=== PATIENT | male | born 1950 | race Caucasian/White ===

== ENCOUNTER 2018-03-01 22:49 | Emergency (ER) | payer OTHER, SELFPAY ==
[2018-03-01 23:00] VITALS: BP 185/91; PULSE 95; RESP 23; O2SAT 85
[2018-03-01 23:02] VITALS: BP 171/99; PULSE 96; RESP 22; TEMP 36.4; O2SAT 80; BMI 36.2
--- NOTE | 2018-03-01 23:17 | DI.RAD.S_ITS ---
PROCEDURE: XR CHEST 1V INDICATIONS: fall, trauma, preop TECHNIQUE: One view of the chest was acquired. COMPARISON: [facility], CT, CT ANGIO CHEST PE PROTOCOL, 03/02/2018, 0:11. FINDINGS: Surgical changes and devices: None. Lungs and pleura: No pleural effusions or pneumothorax. Patchy opacities in the left lung base which represent atelectasis versus pneumonia. Mediastinum: Mediastinal contours appear normal. Heart size is normal. Bones and chest wall: No suspicious bony lesions. Overlying soft tissues appear unremarkable. IMPRESSION: Left basilar atelectasis versus pneumonia. Dictated by: Zee Lares MD, PhD on 03/02/2018 at 8:51 Approved by: Zee Lares MD, PhD on 03/02/2018 at 8:52
[2018-03-01] MEDS: ALBUTEROL/IPRATROPIUM 3 ML AMPUL INH (23:26)
[2018-03-01 23:37] LABS: Add Manual Diff / Slide Review NO; Eosinophils Percent Auto 0.9 % (2-4); Hematocrit 41.5 % (41-53); Hemoglobin 14.1 g/dL (13.5-17.5); Lymphocytes Percent Auto 7.5 % (25-40); Mean Corpuscular Hemoglobin 29.1 PG (26-34); Mean Corpuscular Volume 85.7 fL (80-100); Monocytes Percent Auto 7.5 % (3-14); Neutrophils Absolute Auto 12500 /uL (3000-5900); Neutrophils Percent Auto 84.1 % (50-75); Platelet Count 185 X10^3/uL (150-400); Red Blood Cell Count 4.84 X10^6/uL (4.5-5.9); White Blood Cell Count 14.9 X10^3/uL (4.5-11.0)
[2018-03-01 23:38] VITALS: BP 147/89; PULSE 89; RESP 28; O2SAT 90
[2018-03-01 23:40] VITALS: PULSE 88; RESP 22; O2SAT 90
[2018-03-01 23:45] VITALS: BP 152/94; PULSE 86; RESP 22; O2SAT 93
[2018-03-01 23:51] LABS: Lactate (Lactic Acid) 1.8 mmol/L (0.7-2.1)
[2018-03-01 23:53] LABS: BUN Creatinine Ratio 22.2 (6-22); Blood Urea Nitrogen 40 mg/dL (9-20); Calcium 9.5 mg/dL (8.4-10.2); Carbon Dioxide 20 mmol/L (22-32); Chloride 103 mmol/L (98-107); Creatine Kinase 201 U/L (55-170); Estimated Glomerular Filt Rate 37.7 mL/min (>60); Glucose 355 mg/dL (80-110); Magnesium 1.5 mg/dL (1.6-2.3); Sodium 139 mmol/L (137-145)
[2018-03-01 23:54] LABS: HEMOLYSIS 68 (0-50)
[2018-03-01 23:56] LABS: Potassium 4.2 mmol/L (3.4-5.1)
[2018-03-02] VITALS (12 sets, daily range): BP systolic 146–171; BP diastolic 82–101; PULSE 79–86; RESP 20–28; O2SAT 92–99
--- NOTE | 2018-03-02 00:06 | DI.CT.S_ITS ---
PROCEDURE: CT ANGIO CHEST PE PROTOCOL INDICATIONS: SOB, hypoxia, travel TECHNIQUE: After the administration of intravenous contrast, 2 mm thick sections acquired from the pulmonary apices to the posterior costophrenic angles. 3-dimensional maximum intensity projection (MIP) coronal and sagittal reformats were then acquired through the thorax. For radiation dose reduction, the following was used: automated exposure control, adjustment of mA and/or kV according to patient size. COMPARISON: None. FINDINGS: Image quality: Excellent. Pulmonary arteries: Filling defects are noted in the bilateral upper lobe, bilateral lower lobe and right middle lobe segmental and subsegmental pulmonary arteries compatible with multiple pulmonary emboli. There is slight flattening of the cardiac interventricular septum suggesting right heart strain. Lungs and pleura: Patchy consolidation noted in the left lung base which could represent aspiration, pneumonia or early pulmonary infarcts. 2.1 x 1.5 cm nodular opacity noted in the right middle lobe. No pleural effusions or pneumothorax. Central and peripheral airways are patent. Mediastinum: Heart size is normal, without pericardial effusion. Atherosclerotic calcifications are noted in the aorta, great vessels and the coronary vasculature.No mediastinal or hilar adenopathy. Thoracic aorta is normal in caliber and enhancement. Esophagus is normal in caliber, without hiatal hernia. Bones and chest wall: No suspicious bony lesions. Ribs and thoracic spine appear intact throughout. No axillary or supraclavicular adenopathy. Abdomen: Small hiatal hernia. Visualized upper abdominal solid organs appear normal in the early arterial phase of enhancement. Apparent right adrenal nodule is seen to represent volume averaging artifact on the coronal images related to obliquity of the adrenal glands. IMPRESSION: 1. Abnormal study demonstrating numerous bilateral segmental and subsegmental pulmonary emboli. 2. 2.1 x 1.4 cm right middle lobe nodule. Finding may represent infectious process, round atelectasis or a neoplastic process. Recommend repeat CT scan of the chest in 3 months. 3. Patchy consolidation in the left lung base most concerning for aspiration versus pneumonia. 4. Atherosclerosis including dense atherosclerotic calcifications in the coronary vasculature. Dictated by: Zee Lares MD, PhD on 03/02/2018 at 8:10 Approved by: Zee Lares MD, PhD on 03/02/2018 at 8:18
[2018-03-02 00:08] LABS: CKMB % Relative Index 2.1 % (1.5-5.0); Creatine Kinase MB 4.21 ng/mL (<2.37)
[2018-03-02 00:09] LABS: Procalcitonin 0.06 ng/mL (<0.5)
[2018-03-02] MEDS: SODIUM CHLORIDE 0.9% 500 ML 1000 ML IV (00:30)
[2018-03-02] MEDS: HEPARIN 5,000 UNIT/ML VIAL 7100 UNIT IV (00:34)
[2018-03-02 00:43] LABS: pH ABG 7.52 (7.35-7.45)
[2018-03-02 00:44] LABS: Fractionated Inspired Oxygen 9; HCO3 ABG 21 mmol/L (23-27); Oxygen Saturation ABG 93 % (95-100); PO2 ABG 58 mmHg (80-105); TCO2 ABG 22 mmol/L (23-27)
--- NOTE | 2018-03-02 01:19 | PC.NURSE ---
Pt continues to have air hunger. On non rebreather 15 L. Desaturation w/ all exertion. at bedside.
--- NOTE | 2018-03-02 01:25 | PC.NURSE ---
Note: December 26, 2017: GFR > 60 BUN 21, CR 1.1
[2018-03-02 01:33] LABS: WBC Urine 1-5/HPF (0-5/HPF)
[2018-03-02 01:34] LABS: Bacteria Urine Occasional (0-1); RBC Urine 0-1/HPF (0-5/HPF)
[2018-03-02 01:35] LABS: Culture Indicated Urine Cult Not Indicated; Hyaline Casts Urine 0-1/LPF
[2018-03-02] MEDS: HEPARIN DRIP 25,000 UNIT/500 ML IV.SOLN 42.456 UNIT IV (02:05)
--- NOTE | 2018-03-02 02:08 | PC.NURSE ---
Pt up to commode at bedside. RR increased to > 40, oxygen sat maintained > 90%. HR 90s. No BM, returned to bed, encouraged to take deep breath. Recovered to RR 25-29 in @ 5 min. Weather checking [employer].
[2018-03-02] MEDS: PANTOPRAZOLE 40 MG VIAL IV (02:40)
--- NOTE | 2018-03-02 02:50 | ED_ITS ---
HPI - URI/Sore Throat General Chief Complaint: Upper Respiratory Symptoms Stated Complaint: SOB HAS A COLD Time Seen by Provider: 03/01/18 23:00 Source: patient and family Mode of arrival: ambulatory Limitations: no limitations History of Present Illness HPI Narrative: 67-year-old male with history of hypertension, hyperlipidemia, and diabetes presents to the emergency department with his and a chief complaint of shortness of breath over the past few days. [place] has been on [place] off the [facility] and just returned about 3 hr ago. He states he is profoundly short of breath particularly with any exertion but denies cough or chest pain. He has had no fever or shaking chills. He denies any history of cardiac disease, clots, recent injury or surgery or other known risk factor for PE. Onset (ago): day(s) Duration: constant Severity: severe Relieving factors: nothing Exacerbating factors: exertion Context: recent travel Associated symptoms: other (dyspnea) Treatments prior to arrival: none Related Data Home Medications Medication Instructions Recorded Confirmed aspirin [Aspir-81] 81 mg PO DAILY 03/02/18 03/02/18 atorvastatin 10 mg PO DAILY 03/02/18 03/02/18 carvedilol 25 mg PO BID 03/02/18 03/02/18 gabapentin 600 mg PO BEDTIME 03/02/18 03/02/18 losartan 100 mg PO DAILY 03/02/18 03/02/18 metformin 1,000 mg PO BID 03/02/18 03/02/18 tamsulosin 0.8 mg PO DAILY 03/02/18 03/02/18 Allergies Allergy/AdvReac Type Severity Reaction Status Date / Time No Known Drug Allergies Allergy Verified 03/01/18 23:02 Review of Systems Review of Systems All systems reviewed & are unremarkable except as noted in HPI and below Constitutional Denies chills, Denies fever(s), Denies lethargy and Denies weakness Eyes Denies change in vision, Denies eye discharge, Denies irritation and Denies loss of vision ENT Ears, Nose, Mouth, and Throat: Denies change in voice, Denies neck pain and Denies sore throat Cardiovascular Denies chest pain, Denies irregular heart rhythm, Denies lightheadedness, Denies palpitations, Reports dyspnea, Denies dyspnea on exertion and Denies orthopnea Respiratory Denies cough, Reports dyspnea, Denies dyspnea on exertion and Denies wheezing Gastrointestinal Gastrointestinal: Denies abdominal pain, Denies change in bowel habits, Denies diarrhea, Denies nausea and Denies vomiting Genitourinary Denies hematuria, Denies flank pain, Denies urinary incontinence and Denies urinary urgency Musculoskeletal Denies neck pain Integumentary/Breasts Denies pruritus, Denies erythema, Denies rash and Denies wounds Neurologic Denies confusion, Denies loss of vision and Denies weakness Psychiatric Denies anxiety, Denies confusion, Denies depression, Denies homicidal ideation and Denies suicidal ideation Endocrine Denies palpitations Hematologic/Lymphatic Denies easy bruising Allergic/Immunologic Denies wheezing [facility] Medical History Diabetes (Acute) Diabetic neuropathy (Acute) High blood pressure (Acute) High cholesterol (Acute) Surgical History History of rotator cuff surgery (Acute ~2014) Social History Smoking Status: Never smoker Exam Narrative Exam Narrative: Pleasant 67-year-old male in significant distress, pulse ox on arrival any upper 70s to low 80s at room air Initial Vital Signs Initial Vital Signs: Vital Signs Pulse Rate 95 H 03/01/18 23:00 Respiratory Rate 23 03/01/18 23:00 Blood Pressure 185/91 H 03/01/18 23:00 Pulse Oximetry 85 L 03/01/18 23:00 HENDC Head: normal to inspection Ears: hearing grossly normal bilaterally Nose: external nose normal Face and sinus: normal facial exam Mouth: oral mucosae normal Teeth and gingiva: dentition normal Eyes General: appearance normal, both eyes and all related structures Eyelids: eyelids normal Conjunctivae: conjunctivae normal Sclera: sclerae normal Pupils: PERRL EOM: EOM intact bilaterally Neck Neck: normal visual inspection, trachea midline, No lymphadenopathy, No midline deformity and No JVD Lymphatic: No lymphedema Chest Chest: normal inspection of the chest Resp Effort & Inspection: abnormal respiratory pattern and respiratory distress Auscultation: rales (left base) Cardio Rate: regular rate Rhythm: regular rhythm Heart Sounds: no click, no gallops, no murmurs and no rubs Pulses: normal peripheral pulses GI Inspection: non-distended Palpation: soft, no hepatosplenomegaly, No guarding, No pulsatile mass and No tender Auscultation: normal bowel sounds Back/Spine/Pelvis Back: No CVA tenderness Cervical Spine: cervical ROM normal and No pain with cervical ROM Thoracic/Lumbar Spine: thoracic and lumbar spine normal to inspection Skin General: no rashes or lesions noted, No jaundice and No petechiae Neuro General: alert, oriented x3, gait normal and no focal motor deficits Speech: speech normal Extrem General: full ROM, no clubbing, cyanosis or edema, no pedal edema and no calf tenderness Other: No lower extremity swelling, erythema, pain or other signs suggestive of DVT Course Orders Ordered: ED Orders 03/01/18 22:23 Blood Culture Stat 03/01/18 23:16 Consult to Respiratory Therapy Evaluate & Treat EKG-12 Lead Stat 03/01/18 23:17 XR chest 1V Stat 03/01/18 23:25 B Type Natriuretic Peptide Stat Basic Metabolic Panel Stat Complete Blood Count AUTO DIFF Stat Lactate (Lactic Acid) Stat Magnesium Stat Procalcitonin Stat Troponin with CK Cardiac Panel Stat 03/02/18 EKG-12 Lead Routine 03/02/18 00:06 CT angio chest PE protocol Stat 03/02/18 00:24 Arterial Blood Gas Stat 03/02/18 01:15 Urine Microscopic Stat Discontinued Medications Albuterol (Proventil) 1.25 mg INH NOW ONE Stop: 03/01/18 23:25 Last Admin: 03/01/18 23:27 Dose: Albuterol/Ipratropium (Duoneb) 3 ml INH NOW ONE Stop: 03/01/18 23:17 Last Admin: 03/01/18 23:26 Dose: 3 ml Heparin Sodium (Porcine) (Heparin) 7,100 unit 60 unit/kg (7100 unit) IV NOW ONE Stop: 03/02/18 00:30 Last Admin: 03/02/18 00:34 Dose: 7,100 unit Sodium Chloride (Normal Saline 0.9%) 500 mls @ 1,000 mls/hr IV BOLUS ONE Stop: 03/02/18 01:26 Last Infusion: 03/02/18 01:35 Dose: 0 mls/hr Admin: 03/02/18 00:30 Dose: 1,000 mls/hr Heparin Sodium/Dextrose (Heparin Drip) 25,000 unit in 500 mls @ 42.456 mls/hr IV CONT ALETHEA; Protocol Last Admin: 03/02/18 02:05 Dose: 18 units/kg/hr, 42.456 mls/hr Pantoprazole Sodium (Protonix) 40 mg IV NOW ONE Stop: 03/02/18 02:40 Last Admin: 03/02/18 02:40 Dose: 40 mg Reevaluation(s) Reevaluation #1: Patient seems to be much more comfortable when switching from a nasal cannula to a non-rebreather. He continues to rest comfortably and is mentating without difficulty. Sats were in low to mid 90s on non-rebreather Reevaluation #2: Patient continues to rest relatively comfortably Consultations Consultation #1: Immediately upon echo was a red of [facility] was contacted but they have no ICU beds. At that point we called [facility] Consultation #2: Dr. Ashley at [facility] ICU is happy to accept patient. Unclear at this point if patient will meet criteria for catheter directed lysis. [facility] contacted due to possibility of rapid decompensation and length of travel Vital Signs - 8 hr 03/01/18 23:00 03/01/18 23:02 03/01/18 23:38 Temperature 97.5 F L Pulse Rate 95 H 96 H 89 Respiratory Rate 23 22 28 H Blood Pressure 171/99 H Blood Pressure [Left Arm] 185/91 H 147/89 H Pulse Oximetry 85 L 80 L 90 L 03/01/18 23:45 03/02/18 00:00 03/02/18 00:15 Temperature Pulse Rate 86 86 86 Respiratory Rate 22 22 24 Blood Pressure Blood Pressure [Left Arm] 152/94 H 152/94 H 164/82 H Pulse Oximetry 93 93 93 03/02/18 00:28 03/02/18 01:00 03/02/18 01:15 Temperature Pulse Rate 85 84 81 Respiratory Rate 22 24 22 Blood Pressure Blood Pressure [Left Arm] 164/82 H 171/101 H 164/100 H Pulse Oximetry 92 95 99 03/02/18 01:30 03/02/18 01:48 03/02/18 02:08 Temperature Pulse Rate 81 80 82 Respiratory Rate 22 20 28 H Blood Pressure Blood Pressure [Left Arm] 150/90 H 156/91 H 168/100 H Pulse Oximetry 98 99 95 03/02/18 02:41 03/02/18 02:58 03/02/18 03:15 Temperature Pulse Rate 81 79 80 Respiratory Rate 24 24 24 Blood Pressure Blood Pressure [Left Arm] 156/91 H 147/96 H 165/86 H Pulse Oximetry 96 96 96 03/02/18 03:20 Temperature Pulse Rate 80 Respiratory Rate 24 Blood Pressure 146/95 H Blood Pressure [Left Arm] Pulse Oximetry 97 MDM - URI/Sore Throat Differential Diagnosis Differential diagnosis: Likely upper respiratory infection, viral infection, bronchitis, influenza, pharyngitis and other Medical Records Attestation: I reviewed the patient's medical records. Lab Data Attestation: I reviewed the patient's lab results. Result diagrams: 03/01/18 23:25 03/01/18 23:25 Lab Results 03/01/18 03/01/18 03/01/18 Range/Units 23:25 23:25 23:25 WBC 14.9 H (4.5-11.0) X10^3/uL RBC 4.84 (4.5-5.9) X10^6/uL Hgb 14.1 (13.5-17.5) g/dL Hct 41.5 (41-53) % MCV 85.7 (80-100) fL MCH 29.1 (26-34) PG MCHC 34.0 (30-36) % RDW 15.0 H (11.6-14.8) % Plt Count 185 (150-400) X10^3/uL Neut % (Auto) 84.1 H (50-75) % Lymph % (Auto) 7.5 L (25-40) % Stoddard % (Auto) 7.5 (3-14) % Eos % (Auto) 0.9 L (2-4) % Baso % (Auto) 0.0 (0-2) % Neut # (Auto) 27362 H (9992-9165) /uL ABG pH (7.35-7.45) ABG pCO2 (35-45) mmHg ABG pO2 (80-105) mmHg ABG HCO3 (23-27) mmol/L ABG Total CO2 (23-27) mmol/L ABG O2 Saturation (95-100) % ABG Base Excess (-2-3) mmol/L FiO2 Sodium 139 (137-145) mmol/L Potassium 4.2 (3.4-5.1) mmol/L Chloride 103 (98-107) mmol/L Carbon Dioxide 20 L (22-32) mmol/L BUN 40 H (9-20) mg/dL Creatinine 1.80 H (0.66-1.25) mg/dL Estimated GFR 37.7 L (>60) mL/min BUN/Creatinine Ratio 22.2 H (6-22) Glucose 355 H (80-110) mg/dL Lactate (0.7-2.1) mmol/L Calcium 9.5 (8.4-10.2) mg/dL Magnesium 1.5 L (1.6-2.3) mg/dL Total Creatine Kinase 201 H (55-170) U/L CK-MB (CK-2) 4.21 H (<2.37) ng/mL CK-MB (CK-2) Rel Index 2.1 (1.5-5.0) % Troponin I 2.340 H* (0.01-0.034) ng/mL B-Natriuretic Peptide 196.0 H (<100) Procalcitonin 0.06 (<0.5) ng/mL Urine RBC (0-5/HPF) Urine WBC (0-5/HPF) Urine Bacteria (None) Hyaline Casts (None) Ur Culture Indicated? Micro UA Comment 03/01/18 03/02/18 03/02/18 Range/Units 23:25 00:24 01:15 WBC (4.5-11.0) X10^3/uL RBC (4.5-5.9) X10^6/uL Hgb (13.5-17.5) g/dL Hct (41-53) % MCV (80-100) fL MCH (26-34) PG MCHC (30-36) % RDW (11.6-14.8) % Plt Count (150-400) X10^3/uL Neut % (Auto) (50-75) % Lymph % (Auto) (25-40) % Stoddard % (Auto) (3-14) % Eos % (Auto) (2-4) % Baso % (Auto) (0-2) % Neut # (Auto) (8062-5178) /uL ABG pH 7.52 H (7.35-7.45) ABG pCO2 26.0 L (35-45) mmHg ABG pO2 58 L (80-105) mmHg ABG HCO3 21 L (23-27) mmol/L ABG Total CO2 22 L (23-27) mmol/L ABG O2 Saturation 93 L (95-100) % ABG Base Excess -2.0 (-2-3) mmol/L FiO2 9 Sodium (137-145) mmol/L Potassium (3.4-5.1) mmol/L Chloride (98-107) mmol/L Carbon Dioxide (22-32) mmol/L BUN (9-20) mg/dL Creatinine (0.66-1.25) mg/dL Estimated GFR (>60) mL/min BUN/Creatinine Ratio (6-22) Glucose (80-110) mg/dL Lactate 1.8 (0.7-2.1) mmol/L Calcium (8.4-10.2) mg/dL Magnesium (1.6-2.3) mg/dL Total Creatine Kinase (55-170) U/L CK-MB (CK-2) (<2.37) ng/mL CK-MB (CK-2) Rel Index (1.5-5.0) % Troponin I (0.01-0.034) ng/mL B-Natriuretic Peptide (<100) Procalcitonin (<0.5) ng/mL Urine RBC 0-1/hpf (0-5/HPF) Urine WBC 1-5/hpf (0-5/HPF) Urine Bacteria Occasional (0-1) (None) Hyaline Casts 0-1/lpf (None) Ur Culture Indicated? Cult not indicated Micro UA Comment Not Reportable Imaging Data CT scan - chest: Attestation: I personally reviewed and interpreted this imaging study as follows: My impression: Bilateral PEs Radiologist's impression: Positive for multiple pulmonary emboli and segmental and subsegmental pulmonary arteries throughout all lobes of the right lung in all lobes of the left lung. Pulmonary emboli extend into distal main pulmonary arteries. Two moderate focal size densities in left lower lobe could be pneumonia versus pulmonary infarct ECG Data Attestation: I personally reviewed and interpreted this ECG as follows: Prior ECG tracings: not available for review Interpretation: Normal sinus rhythm without signs of ischemia or ectopy Critical Care Time Critical Care Time: Yes Total Critical Care Time: 45 Attestation: The high probability of a clinically significant, sudden or life threatening deterioration of the [] system(s) required my full and direct attention, intervention and personal management. The aggregate critical care time was [] minutes. This time is in addition to time spent performing reported procedures but includes the following: [] Data Review and interpretation [] Patient assessment and monitoring of vital signs [] Documentation [] Medication orders and management Discharge Plan Departure Patient Disposition: [facility] Clinical Impression: Bilateral pulmonary embolism, Acute respiratory failure with hypoxia, Elevated troponin, Elevated brain natriuretic peptide (BNP) level, Embolism, pulmonary with infarction Discharge Date/Time: 03/02/18 03:48 Interventions: ED Discharge Assessment Last Done: 03/02/18 03:20 Prescriptions: No Action gabapentin 600 mg tablet 600 mg PO BEDTIME RF: 0 atorvastatin 10 mg Tablet 10 mg PO DAILY RF: 0 aspirin [Aspir-81] 81 mg Tablet,Delayed Release (Dr/Ec) 81 mg PO DAILY RF: 0 tamsulosin 0.4 mg capsule,extended release 24hr 0.8 mg PO DAILY RF: 0 carvedilol 25 mg tablet 25 mg PO BID RF: 0 metformin 1,000 mg tablet 1,000 mg PO BID RF: 0 losartan 100 mg tablet 100 mg PO DAILY RF: 0
== END 2018-03-02 03:48 | disposition short-term general hospital (02) ==
PROVIDERS: Emergency Provider Emergency Medicine; PCP Internal Medicine
DX: I26.99 Other pulmonary embolism without acute cor pulmonale (principal); J96.01 Acute respiratory failure with hypoxia; R74.8 Abnormal levels of other serum enzymes; R79.89 Other specified abnormal findings of blood chemistry
CPT/HCPCS: 36415; 36591; 36600; 71045; 71275; 80048; 81003; 81015; 82550; 82553; 82805; 83605; 83735; 83880; 84145; 84484; 85025; 87040; 93005; 94640; 99285; 99291; C9113; J1644; Q9967

== ENCOUNTER → 2018-03-20 11:17 | Outpatient (CLI) | payer OTHER, SELFPAY ==
--- NOTE | 2018-03-20 | DI.US.S_ITS ---
PROCEDURE: US PERIPH VENOUS LOW EXTREM LT INDICATIONS: LEFT LOWER LEG PAIN TECHNIQUE: Real-time imaging, as well as color and pulse Doppler interrogation, were performed of the lower extremity deep veins from the inguinal ligament to the popliteal fossa. COMPARISON: [facility], CT, CT ANGIO CHEST PE PROTOCOL, 03/02/2018, 0:11. FINDINGS: There are intraluminal filling defects in the popliteal vein which is noncompressible, consistent with DVT. IMPRESSION: DVT involving the left popliteal vein. Dictated by: Dre Portillo M.D. on 03/20/2018 at 14:52 Approved by: Dre Portillo M.D. on 03/20/2018 at 14:56
== END ==
PROVIDERS: PCP Internal Medicine; Visit Provider Student in an Organized Health Care Education/Training Program
DX: I82.432 Acute embolism and thrombosis of left popliteal vein (principal); M79.662 Pain in left lower leg
CPT/HCPCS: 93971

== ENCOUNTER 2018-06-29 20:14 | Emergency (ER) | payer OTHER, SELFPAY ==
[2018-06-29 20:28] VITALS: BP 168/96; PULSE 76; RESP 20; TEMP 36.8; O2SAT 96
[2018-06-29 20:51] LABS: Bacteria Urine None Seen
[2018-06-29 21:10] LABS: Culture Indicated Urine Cult Not Indicated; RBC Urine 1-5/HPF (0-5/HPF); Squamous Epithelial Cell Urine 0-1 /HPF; WBC Urine 0-1/HPF (0-5/HPF)
--- NOTE | 2018-06-29 21:25 | PC.NURSE ---
pt states low abdominal pain and low back pain since saturday. Tried to self cath himself without success. Has enlarged prostate. Bladder scanner post void was greater 999 mL. Placed Morris catheter per doctor's order.
[2018-06-29 22:23] VITALS: BP 139/83; PULSE 74; RESP 16; O2SAT 95
--- NOTE | 2018-06-29 22:29 | ED.MALEGU ---
HPI - Male Genitourinary General Chief complaint: Urogenital-Male Stated complaint: pain lower abdomen and kidneys, nausea Time Seen by Provider: 06/29/18 21:00 Source: patient and family Mode of arrival: ambulatory Limitations: no limitations History of Present Illness HPI Narrative: 68-year-old former smoker presents with his in the chief complaint of difficulty urinating and lower abdominal discomfort. The patient has known enlarged prostate and has been told by his urologist that he may likely need a ?roto router ?. He denies fever or chills nor nausea or vomiting. His pain is worse when he moves and improves with rest. He admits to pain that radiates into his bilateral flank ?were his kidneys are ?. He had been given supplies to self cath if this event happens and gave it an attempt yesterday but was unsuccessful Onset (ago): hour(s) Duration: constant Location: right flank, left flank and abdomen Severity: severe Quality: aching Relieving factors: none Exacerbating factors: movement Reports urinary retention Related Data Home Medications Medication Instructions Recorded Confirmed aspirin [Aspir-81] 81 mg PO DAILY 03/02/18 03/02/18 atorvastatin 10 mg PO DAILY 03/02/18 03/02/18 carvedilol 25 mg PO BID 03/02/18 03/02/18 gabapentin 600 mg PO BEDTIME 03/02/18 03/02/18 losartan 100 mg PO DAILY 03/02/18 03/02/18 metformin 1,000 mg PO BID 03/02/18 03/02/18 tamsulosin 0.8 mg PO DAILY 03/02/18 03/02/18 Allergies Allergy/AdvReac Type Severity Reaction Status Date / Time No Known Drug Allergies Allergy Verified 06/29/18 20:36 Review of Systems Review of Systems All systems reviewed & are unremarkable except as noted in HPI and below Constitutional Denies chills, Denies fever(s), Denies lethargy and Denies weakness Eyes Denies change in vision, Denies eye discharge, Denies irritation and Denies loss of vision ENT Ears, Nose, Mouth, and Throat: Denies change in voice, Denies neck pain and Denies sore throat Cardiovascular Denies chest pain, Denies irregular heart rhythm, Denies lightheadedness, Denies palpitations, Denies dyspnea, Denies dyspnea on exertion and Denies orthopnea Respiratory Denies cough, Denies dyspnea, Denies dyspnea on exertion and Denies wheezing Gastrointestinal Gastrointestinal: Reports abdominal pain, Denies change in bowel habits, Denies diarrhea, Denies nausea and Denies vomiting Genitourinary Denies hematuria, Reports difficulty urinating, Denies flank pain, Denies urinary incontinence and Denies urinary urgency Musculoskeletal Denies neck pain Integumentary/Breasts Denies pruritus, Denies erythema, Denies rash and Denies wounds Neurologic Denies confusion, Denies loss of vision and Denies weakness Psychiatric Denies anxiety, Denies confusion, Denies depression, Denies homicidal ideation and Denies suicidal ideation Endocrine Denies palpitations Hematologic/Lymphatic Denies easy bruising Allergic/Immunologic Denies wheezing [facility] Medical History Diabetes (Acute) Diabetic neuropathy (Acute) High blood pressure (Acute) High cholesterol (Acute) Surgical History History of rotator cuff surgery (Acute ~2014) Social History Smoking Status: Never smoker Exam Narrative Exam Narrative: GENERAL: Pleasant 68-year-old male, but obviously very uncomfortable. HEAD: Atraumatic. Normocephalic. No temporal or scalp tenderness. EYES: Pupils equal round and reactive. Extraocular motions intact. No scleral icterus. No injection or drainage. ENT: Nose without bleeding, purulent drainage or septal hematoma. Throat without erythema, tonsillar hypertrophy or exudate. Uvula midline. Airway patent. NECK: Trachea midline. No JVD or lymphadenopathy. Supple, nontender, no meningeal signs. CARDIOVASCULAR: Regular rate and rhythm without murmurs, gallops, or rubs. RESPIRATORY: Clear to auscultation. Breath sounds equal bilaterally. No wheezes, rales, or rhonchi. GASTROINTESTINAL: Abdomen soft, tender in the suprapubic region, nondistended. No hepato-splenomegaly, or palpable masses. No guarding. EXTREMITIES: No clubbing, cyanosis, or edema. No joint tenderness, effusion, or edema noted. BACK: Nontender without deformity or crepitance. No flank tenderness. NEURO: AOx3. SKIN: No rash or erythema. Initial Vital Signs Initial Vital Signs: Vital Signs Temperature 98.2 F 06/29/18 20:28 Pulse Rate 76 06/29/18 20:28 Respiratory Rate 20 06/29/18 20:28 Blood Pressure 168/96 H 06/29/18 20:28 Pulse Oximetry 96 06/29/18 20:28 Course Orders Ordered: ED Orders 06/29/18 20:40 Urine Microscopic Stat Reevaluation(s) Reevaluation #1: Bladder scanner notes greater than 999 mL. Morris catheter placed and 1800mLremoved with complete resolution of symptoms Vital Signs - 8 hr 06/29/18 20:28 06/29/18 22:23 Temperature 98.2 F Pulse Rate 76 74 Respiratory Rate 20 16 Blood Pressure 168/96 H Blood Pressure [Left Arm] 139/83 Pulse Oximetry 96 95 MDM - Male Genitourinary Lab Data Lab Results 06/29/18 Range/Units 20:40 Urine RBC 1-5/hpf (0-5/HPF) Urine WBC 0-1/hpf (0-5/HPF) Ur Squamous Epith Cells 0-1 /hpf Urine Bacteria None seen (None) Ur Culture Indicated? Cult not indicated Micro UA Comment Not Reportable Urine Dip Bedside Urine Glucose Negative Bedside Urine Bilirubin - Negative Bedside Urine Ketone - Negative Urine Specific [place] 1.015 Bedside Urine Occult Blood +++ Bedside Urine pH 6.0 Bedside Urine Protein + 30 Bedside Urine Urobilinogen - Negative Bedside Urine Nitrite - Negative Bedside Urine Leukocytes - Negative Esterase Discharge Plan Departure Patient Disposition: Home Clinical Impression: Acute urinary retention Discharge Date/Time: 06/29/18 22:41 Interventions: ED Discharge Assessment Last Done: 06/29/18 22:40 Instructions: DI for Urinary Retention in Men Activity Restrictions/Additional Instructions: *You have been diagnosed with [ acute urinary retention ] *What to do: * continue to take medications as directed *Follow up with your urologist, call tomorrow for an appointment. Let them know you were seen in the Emergency Department and that we ask that you be seen in follow up *Return to ER if you should have any new, worsening or concerning symptoms Prescriptions: No Action gabapentin 600 mg tablet 600 mg PO BEDTIME RF: 0 atorvastatin 10 mg Tablet 10 mg PO DAILY RF: 0 aspirin [Aspir-81] 81 mg Tablet,Delayed Release (Dr/Ec) 81 mg PO DAILY RF: 0 tamsulosin 0.4 mg capsule,extended release 24hr 0.8 mg PO DAILY RF: 0 carvedilol 25 mg tablet 25 mg PO BID RF: 0 metformin 1,000 mg tablet 1,000 mg PO BID RF: 0 losartan 100 mg tablet 100 mg PO DAILY RF: 0 Referrals: Rebecca Hardwick MD [Physician] -
== END 2018-06-29 22:41 | disposition home or self-care (01) ==
PROVIDERS: Emergency Provider Emergency Medicine; PCP Internal Medicine
DX: R33.9 Retention of urine, unspecified (principal)
CPT/HCPCS: 51701; 51798; 81003; 81015; 99283

== ENCOUNTER 2018-07-16 20:32 | Emergency (ER) | payer OTHER, SELFPAY ==
[2018-07-16 20:35] VITALS: BP 203/117; PULSE 89; RESP 22; TEMP 36.4; O2SAT 98
--- NOTE | 2018-07-16 20:50 | ED_ITS ---
HPI - Male Genitourinary General Chief complaint: Urogenital-Male Stated complaint: BLEEDING AND PAIN FROM CATHETER Time Seen by Provider: 07/16/18 20:49 Source: patient Mode of arrival: ambulatory Limitations: no limitations History of Present Illness HPI Narrative: Patient is a 68-year-old male with a known large prostate here for not being able to urinate since this morning. Patient has seen Urology for the enlarged prostate this was after he had an episode of urinary retention. He is on prostate medications. He does self cath at home. He is also on Coumadin for DVT and PEs. He states that throughout today he has been self cathing however has only been getting trickles of blood and no urine. No fevers. Does have lower abdominal pain and distention. Related Data Home Medications Medication Instructions Recorded Confirmed aspirin [Aspir-81] 81 mg PO DAILY 03/02/18 03/02/18 atorvastatin 10 mg PO DAILY 03/02/18 03/02/18 carvedilol 25 mg PO BID 03/02/18 03/02/18 gabapentin 600 mg PO BEDTIME 03/02/18 03/02/18 losartan 100 mg PO DAILY 03/02/18 03/02/18 metformin 1,000 mg PO BID 03/02/18 03/02/18 tamsulosin 0.8 mg PO DAILY 03/02/18 03/02/18 Allergies Allergy/AdvReac Type Severity Reaction Status Date / Time No Known Drug Allergies Allergy Verified 06/29/18 20:36 Review of Systems Constitutional Denies fever(s) Cardiovascular Denies chest pain and Denies dyspnea Respiratory Denies dyspnea Gastrointestinal Gastrointestinal: Reports abdominal pain, Reports nausea and Denies vomiting Genitourinary Reports hematuria, Reports difficulty urinating and Reports urinary hesitancy Musculoskeletal Denies myalgias and Denies arthralgias Integumentary/Breasts Denies lesions and Denies rash Hematologic/Lymphatic Reports easy bleeding [facility] Medical History Diabetes (Acute) Diabetic neuropathy (Acute) High blood pressure (Acute) High cholesterol (Acute) Surgical History History of rotator cuff surgery (Acute ~2014) Social History Smoking Status: Never smoker Exam Initial Vital Signs Initial Vital Signs: Vital Signs Temperature 97.6 F 07/16/18 20:35 Pulse Rate 89 07/16/18 20:35 Respiratory Rate 22 07/16/18 20:35 Blood Pressure 203/117 H 07/16/18 20:35 Pulse Oximetry 98 07/16/18 20:35 Const General: cooperative, No comfortable (Uncomfortable appearing), well developed and well groomed Orientation: alert, awake and oriented x3 Resp Effort & Inspection: normal respiratory effort Cardio Rate: regular rate GI Inspection: distended (Lower abdomen) Palpation: tender (Lower abdomen) Back/Spine/Pelvis Back: No CVA tenderness Skin Lesions: no lesions Rashes: no rashes Neuro General: alert, awake and oriented x3 Extrem General: normal to inspection and capillary refill normal Psych Appearance: grossly normal and well kempt Course Orders Ordered: Discontinued Medications Morphine Sulfate (Morphine) 4 mg SUBCUT NOW ONE Stop: 07/16/18 21:34 Last Admin: 07/16/18 21:41 Dose: 4 mg Morphine Sulfate (Morphine) 4 mg SUBCUT NOW ONE Stop: 07/16/18 22:55 Last Admin: 07/16/18 22:56 Dose: 4 mg Vital Signs - 8 hr 07/16/18 20:35 07/16/18 22:35 Temperature 97.6 F Pulse Rate 89 80 Respiratory Rate 22 18 Blood Pressure 203/117 H Blood Pressure [Right Arm] 210/110 H Pulse Oximetry 98 97 MDM - Male Genitourinary MDM Narrative Medical decision making narrative: Patient did not arrive with a catheter in place. Had 2 initial attempts at placing a Morris catheter unsuccessful with urine her return. I discussed the case with Dr. Alejandro who is the patient's urologist who recommended using a coude catheter which we did here in the ER. We were still unable to have any return of urine. I do have concern of either a blockage with a clot or a false passage. Dr. Alejandro recommend that the patient be transferred to [facility] where he would see the patient. I discussed the case with the emergency department at [facility] and Dr. Velazquez accepts patient in transfer. Patient is stable for transport. That he would prefer to go up by private vehicle. I do not think that this is unreasonable. Discharge Plan Departure Patient Disposition: [facility] Clinical Impression: Acute retention of urine Activity Restrictions/Additional Instructions: Upon discharge from the emergency department your to go to [facility] in [facility]. I did discuss the case with your urologist who recommended you come to [facility] for further evaluation. Prescriptions: No Action gabapentin 600 mg tablet 600 mg PO BEDTIME RF: 0 atorvastatin 10 mg Tablet 10 mg PO DAILY RF: 0 aspirin [Aspir-81] 81 mg Tablet,Delayed Release (Dr/Ec) 81 mg PO DAILY RF: 0 tamsulosin 0.4 mg capsule,extended release 24hr 0.8 mg PO DAILY RF: 0 carvedilol 25 mg tablet 25 mg PO BID RF: 0 metformin 1,000 mg tablet 1,000 mg PO BID RF: 0 losartan 100 mg tablet 100 mg PO DAILY RF: 0
[2018-07-16] MEDS: MORPHINE 4 MG/ML INJ SUBCUT ×2 (21:41→22:56)
--- NOTE | 2018-07-16 22:29 | PC.NURSE ---
His pizarro was irrigated with 200 ml sterile water,small amount of red drainage returned,he had been pre medicated for pain first.DR Plunkett in room and patient refused more irrigation at this time.
[2018-07-16 22:35] VITALS: BP 210/110; PULSE 80; RESP 18; O2SAT 97
[2018-07-16 23:26] VITALS: BP 203/117; PULSE 80; RESP 18; TEMP 36.4; O2SAT 97
--- NOTE | 2018-07-16 23:28 | PC.NURSE ---
PT states self caths, was unable to cath himself tonight after 6 attempts with bleeding at meatus. PT states was able to cath self this am and is now having urinary retention with bladder pain 03/11.
[2018-07-16 23:31] VITALS: BP 189/109; PULSE 88; RESP 18; O2SAT 98
== END 2018-07-16 23:33 | disposition short-term general hospital (02) ==
PROVIDERS: Emergency Provider Emergency Medicine; PCP Internal Medicine
DX: R33.9 Retention of urine, unspecified (principal)
CPT/HCPCS: 51701; 51798; 96372; 99283; J2270

== ENCOUNTER → 2019-12-28 09:26 | Outpatient (CLI) | payer MEDICARE, SELFPAY ==
[2019-12-28 10:24] LABS: BUN Creatinine Ratio 19.2 (6-22); Blood Urea Nitrogen 20 mg/dL (9-20); Calcium 9.2 mg/dL (8.4-10.2); Carbon Dioxide 27 mmol/L (22-32); Chloride 104 mmol/L (98-107); Estimated Glomerular Filt Rate > 60.0 mL/min (>60); Glucose 153 mg/dL (80-110); HEMOLYSIS < 15 (0-50); Potassium 4.3 mmol/L (3.4-5.1); Sodium 139 mmol/L (137-145)
[2019-12-28 10:25] LABS: Hemoglobin A1C% w Est Avg Glu 7.7 % (4.0-6.0)
== END ==
PROVIDERS: PCP Internal Medicine; Referring Provider Internal Medicine; Visit Provider Internal Medicine
DX: E11.9 Type 2 diabetes mellitus without complications (principal); E78.00 Pure hypercholesterolemia, unspecified
CPT/HCPCS: 36415; 80048; 83036

== ENCOUNTER → 2020-03-11 14:29 | Outpatient (CLI) | payer MEDICARE, SELFPAY ==
--- NOTE | 2020-03-11 | DI.RAD.S_ITS ---
PROCEDURE: XR CHEST 2V INDICATIONS: DYSPNEA TECHNIQUE: 2 views of the chest were acquired. COMPARISON: [facility], CR, XR CHEST 1V, 03/01/2018, 23:34. FINDINGS: Surgical changes and devices: Surgical anchors involving the right humeral head.. Lungs and pleura: Lungs are clear. No pleural effusions or pneumothorax. Mediastinum: Mediastinal contours are normal. Heart size is normal. Bones and chest wall: No suspicious bony abnormalities. Soft tissues appear unremarkable. IMPRESSION: No acute cardiopulmonary disease. Dictated by: Ambrosio Escobar [facility] Interpreted: Josue Dunn MD on 03/11/2020 at 14:47 Approved by: Josue Dunn M.D. on 03/11/2020 at 15:52
== END ==
PROVIDERS: PCP Internal Medicine; Referring Provider Internal Medicine; Visit Provider Internal Medicine
DX: R06.00 Dyspnea, unspecified (principal)
CPT/HCPCS: 71046

== ENCOUNTER → 2020-03-23 08:12 | Outpatient (CLI) | payer MEDICARE, SELFPAY ==
[2020-03-24 13:11] LABS: COVID19 Sendout Not Detected (Not Detect)
== END ==
PROVIDERS: PCP Internal Medicine; Visit Provider Physician Assistant
DX: Z01.812 Encounter for preprocedural laboratory examination (principal)
CPT/HCPCS: 87635

== ENCOUNTER → 2020-03-25 12:38 | Outpatient (CLI) | payer MEDICARE, SELFPAY ==
--- NOTE | 2020-03-30 08:53 | P.PFT.S_ITS ---
Pulmonary Function Test Referral & Results Date Patient Seen: 03/25/20 Requesting provider: Jeffery Mulligan Results: The spirometry demonstrates an FVC of 2.96 L which is 66% of predicted. The FEV1 was measured at 2.44 L which is 74% of predicted. The FEV1/FVC ratio was 82 which is 112% of predicted. Following the administration of bronchodilator there was a 20% improvement in FEF 25-75% . Lung volumes show an SVC of 3.58 L which is 77% next feel 26.80 of predicted. The diffusing capacity was measured at 81% which is [] of predicted. No hemoglobin value was provided, so no correction for potential anemia could be made, if appropriate. The maximum voluntary ventilation was minimally reduced Interpretation: This study demonstrates mild obstructive lung disease based on reduction FEV1. There is a slight improvement in small airway flow based on in change in FEF 25- 75% after bronchodilator Lung volumes are also minimally reduced based on reduction SVC Diffusing capacity may also be minimally reduced as above. Overall this study demonstrates mild obstructive lung disease with limited evidence of benefit following bronchodilator, mild restrictive lung disease and perhaps very mild disease of the capillary alveolar level Clinical correlation suggested
== END ==
PROVIDERS: PCP Internal Medicine; Referring Provider Internal Medicine; Visit Provider Internal Medicine
DX: R06.02 Shortness of breath (principal); J98.8 Other specified respiratory disorders
CPT/HCPCS: 94060; 94726; 94729

== ENCOUNTER → 2020-05-10 09:15 | Outpatient (CLI) | payer MEDICARE, SELFPAY ==
--- NOTE | 2020-05-10 09:36 | DI.ECHO.S_ITS ---
Echocardiogram Report + + :Name: TYRA JERRY Study Date: 05/10/2020 Height: 70 in : :[facility] Weight: 271 lb : : Gender: Male BSA: 2.4 m2 : :: 1950 Age: 70 yrs BP: 180/98 mmHg: :Reason For Study: DYSPNEA : :Ordering Physician: Dr. Gil : :Isaak Performed By: Chen Dennis : :Referring: TRAVIS NOLASCO : + + Interpretation Summary The ejection fraction is estimated to be 55-60%. There is mild mitral regurgitation. There is no pericardial effusion. Procedure: A two-dimensional transthoracic echocardiogram with color flow and Doppler was performed. The study quality was technically adequate. The patient had an echocardiogram, but there is no comparison study available. Left Ventricle: The left ventricle is normal in size. There is borderline concentric left ventricular hypertrophy. The ejection fraction is estimated to be 55-60%. Left ventricular wall motion is normal. Diastolic parameters suggest a pseudonormalization pattern, consistent with probable elevated filling pressures. Right Ventricle: The right ventricle is normal in size and function. Atria: The left atrium is mildly dilated. The right atrium is normal in size. There is no Doppler evidence for an interatrial shunt. Mitral Valve: The mitral valve is normal in structure and function. There is mild mitral annular calcification. There is mild mitral regurgitation. Aortic Valve: The aortic valve is trileaflet. The aortic valve opens well. There is no aortic valve stenosis. No aortic regurgitation is present. Tricuspid Valve: The tricuspid valve is normal in structure and function. There is a trace or physiologic amount of tricuspid regurgitation. Pulmonary artery pressures cannot be estimated because of the lack of a measurable TR jet velocity but the IVC suggests a CVP of around 3 mmHg. Pulmonic Valve: The pulmonic valve leaflets are thin and pliable; valve motion is normal. There is no pulmonic valvular regurgitation. Great Vessels: The aortic root is normal size. The ascending aorta is mildly enlarged. The IVC is of normal diameter and collapses greater than 50% with a sniff. This suggests a low right atrial pressure of 3 mm Hg. Pericardium/ Pleura There is no pericardial effusion. There is no pleural effusion. MMode/2D Measurements & Calculations LVIDd: 5.3 cm LVOT diam: 2.4 cm LVIDs: 3.3 cm Ao root diam: 3.7 cm FS: 36.7 % asc Aorta Diam: 3.7 cm EPSS: 1.0 cm Ao Arch Diam (Prox Trans): 3.3 cm IVSd: 1.0 cm LVPWd: 1.1 cm LV vergara. diameter/BSA (cm/m^2): 2.2 LV sys. diameter/BSA (cm/m^2): 1.4 LA A2 area: 27.4 cm2 RA long axis: 5.5 cm LA A4 area: 21.8 cm2 RA area: 19.7 cm2 LA length (vol): 5.7 cm RA vol: 59.9 ml LA vol: 89.3 ml RA : 25.2 ml/m2 LA vol index: 37.6 ml/m2 IVC diam: 1.7 cm RVD1 (basal): 3.8 cm TAPSE: 1.8 cm Doppler Measurements & Calculations Ao V2 max: 107.2 cm/sec LVOT Max Brian: 84.9 cm/sec Ao V2 mean: 69.8 cm/sec LV V1 max P.9 mmHg Ao max P.6 mmHg LV V1 VTI: 21.0 cm Ao mean P.3 mmHg TING(I,D): 3.7 cm2 Ao V2 VTI: 26.3 cm TING(V,D): 3.6 cm2 sev ratio: 0.80 TING indexed to BSA (cm^2/m^2): 1.5 MV E max brian: 90.1 cm/sec PA V2 max: 83.7 cm/sec MV A max brian: 69.9 cm/sec PA V2 mean: 51.6 cm/sec MV E/A: 1.3 PA mean P.3 mmHg Med Peak E' Brian: 5.1 cm/sec PA pr(Accel): -8.3 mmHg E/E' med: 17.7 Lat Peak E' Brian: 7.6 cm/sec E/E' lat: 11.9 E/e' average: 14.8 MV dec time: 0.23 sec SV(LVOT): 96.5 ml Reading Physician:01:27 PM
== END ==
PROVIDERS: PCP Internal Medicine; Referring Provider Internal Medicine; Visit Provider Internal Medicine
DX: I34.0 Nonrheumatic mitral (valve) insufficiency (principal); I77.89 Other specified disorders of arteries and arterioles; R06.00 Dyspnea, unspecified
CPT/HCPCS: 93306

== ENCOUNTER → 2020-08-09 16:59 | Outpatient (ROUT) | payer MEDICARE, SELFPAY ==
[2020-08-09 17:16] LABS: C-Reactive Protein Quant < 0.5 mg/dL (<1.0)
[2020-08-09 17:38] LABS: Erythrocyte Sedimentation Rate 10 MM/HR (0-15)
== END ==
PROVIDERS: PCP Internal Medicine; Visit Provider Internal Medicine
DX: G44.89 Other headache syndrome (principal)
CPT/HCPCS: 85651; 86140

== ENCOUNTER → 2021-02-10 07:32 | Outpatient (CLI) | payer OTHER, SELFPAY ==
[2021-02-10 08:55] LABS: Add Manual Diff / Slide Review NO; Basophils Absolute Auto 0 /uL (0-100); Basophils Percent Auto 0.7 % (0-2); Eosinophils Absolute Auto 200 /uL (0-450); Eosinophils Percent Auto 3.5 % (2-4); Hematocrit 37.8 % (41-53); Lymphocytes Absolute Auto 800 /uL (1100-4500); Lymphocytes Percent Auto 14.5 % (25-40); Mean Corpuscular HGB Conc 34.4 % (30-36); Mean Corpuscular Hemoglobin 32.6 PG (26-34); Mean Corpuscular Volume 94.7 fL (80-100); Monocytes Absolute Auto 600 /uL (0-900); Monocytes Percent Auto 10.2 % (3-14); Neutrophils Absolute Auto 4100 /uL (1500-7000); Neutrophils Percent Auto 71.1 % (50-75); Platelet Count 150 X10^3/uL (150-400); Red Blood Cell Count 3.99 X10^6/uL (4.5-5.9); Red Cell Distribution Width 15.6 % (11.6-14.8); White Blood Cell Count 5.7 X10^3/uL (4.5-11.0)
[2021-02-10 09:00] LABS: Hemoglobin A1C% w Est Avg Glu 7.9 % (4.0-6.0)
[2021-02-10 09:07] LABS: Alanine Aminotransferase 25 IU/L (<50); Albumin 3.8 g/dL (3.5-5.0); Albumin Globulin Ratio 1.3 (1.0-2.8); Alkaline Phosphatase 82 U/L (38-126); Aspartate Aminotransferase 31 IU/L (17-59); Bilirubin Total 0.6 mg/dL (0.2-1.3); Blood Urea Nitrogen 21 mg/dL (9-20); Calcium 9.1 mg/dL (8.4-10.2); Carbon Dioxide 26 mmol/L (22-32); Chloride 107 mmol/L (98-107); Cholesterol 131 mg/dL (140-199); Estimated Glomerular Filt Rate > 60.0 mL/min (>60); Globulin 2.9 g/dL (1.7-4.1); Glucose 137 mg/dL (80-110); HDL Cholesterol 47 mg/dL (40-60); HEMOLYSIS < 15 (0-50); LDL Cholesterol Calculated 74 mg/dL (<100); Potassium 3.9 mmol/L (3.4-5.1); Sodium 140 mmol/L (137-145); Total Protein 6.7 g/dL (6.3-8.2); Triglycerides 50 mg/dL (35-150)
== END ==
PROVIDERS: PCP Internal Medicine; Referring Provider Internal Medicine; Visit Provider Internal Medicine
DX: Z00.00 Encounter for general adult medical examination without abnormal findings (principal)
CPT/HCPCS: 36415; 80053; 80061; 83036; 85025

== ENCOUNTER → 2021-03-24 12:13 | Outpatient (CLI) | payer OTHER, SELFPAY ==
[2021-03-24 12:47] LABS: Prothrombin Time 22.7 SECONDS (10.1-12.7)
[2021-03-24 12:49] LABS: PTT Partial Thromboplastin Tim 41 SECONDS (26.4-36.2)
== END ==
PROVIDERS: PCP Internal Medicine; Referring Provider Orthopaedic Surgery; Visit Provider Orthopaedic Surgery
DX: Z01.818 Encounter for other preprocedural examination (principal)
CPT/HCPCS: 36415; 85610; 85730

== ENCOUNTER → 2022-03-23 10:00 | Outpatient (CLI) | payer OTHER, SELFPAY ==
--- NOTE | 2022-03-23 | DI.RAD.S_ITS ---
PROCEDURE: XR KNEE RT 3V INDICATIONS: RIGHT KNEE PAIN TECHNIQUE: 3 views of the knee were acquired. COMPARISON: None. FINDINGS: Mild tricompartmental joint space narrowing and marginal osteophytosis. No subchondral sclerosis or cystic change. Normal patellar height and position. No fracture or dislocation. Regional soft tissues demonstrate no acute finding. IMPRESSION: Mild tricompartmental osteoarthritis. Dictated by: Jonathan Jerome M.D. on 03/23/2022 at 11:19 Approved by: Jonathan Jerome M.D. on 03/23/2022 at 11:20
== END ==
PROVIDERS: PCP Student in an Organized Health Care Education/Training Program; Referring Provider Student in an Organized Health Care Education/Training Program; Visit Provider Student in an Organized Health Care Education/Training Program
DX: M25.561 Pain in right knee (principal); M17.11 Unilateral primary osteoarthritis, right knee
CPT/HCPCS: 73562